=== PATIENT | female | born 1945 | race Caucasian/White ===

== ENCOUNTER 2022-10-05 11:59 | Inpatient (IN) | payer OTHER, MEDICARE, SELFPAY ==
[2022-09-27 13:34] VITALS: BMI 22.1
[2022-10-05] VITALS (17 sets, daily range): BP systolic 111–176; BP diastolic 51–96; PULSE 78–104; RESP 14–22; TEMP 35.9–36.7; O2SAT 95–100; BMI 22.1; BMI 23.7
--- NOTE | 2022-10-05 | DI.RAD.S_ITS ---
PROCEDURE: XR LUMBAR SPINE 2-3V INDICATIONS: L4-5 TLIF TECHNIQUE: 2 intraoperative fluoroscopic views of the lumbar spine were acquired. COMPARISON: None. FINDINGS: Intraoperative fluoroscopic images of lower lumbar spine shows posterior fusion at L4 and L5 levels with intervertebral spacer placement. IMPRESSION: Fluoro guidance was provided intraoperatively for posterior fusion of L4 and L5 vertebral bodies. Dictated by: Eric Boyer M.D. on 10/05/2022 at 16:58 Approved by: Eric Boyer M.D. on 10/05/2022 at 16:58
[2022-10-05] MEDS: LACTATED RINGERS 1,000 ML 42 ML IV ×2 (12:41→15:34)
[2022-10-05 13:10] LABS: COVID19 -Nasal RAPID Negative (Negative)
--- NOTE | 2022-10-05 13:26 | PM.PREOP ---
Pre-operative Note COVID-19 COVID-19 status: Negative Result date/Date tested (Pos, Neg/Pending): 10/04/22 Criteria for continued procedure: Expected advancement of disease process, Possibility delay results in more complex future surgery or treatment, Increased loss of function, Continuing or worsening of significant or severe pain, Deterioration of the patient's condition or overall health and Delay expected to result in less-positive ultimate med/surg outcome Interval Note History & Physical reviewed/Exam performed by Physician: Yes Changes to H&P: No
[2022-10-05] MEDS: CEFAZOLIN 2 GM/100 ML PREMIX 100 ML IV ×2 (14:26→23:26)
--- NOTE | 2022-10-05 14:46 | SUR.OPER ---
Prone on spine table, head in foam head support, padded chest and pelvic supports, gel pad at knees, lower legs supported by pillows; nipples, genitalia and toes free of pressure, arms secured on foam padded arm boards at <90 degrees abduction. Tape over blanket at thigh secured to table. Gel pad between heels
[2022-10-05] MEDS: BUPIVACAINE 0.25% (PF) 30 ML, EPINEPHrine 0.3 MG INJ (14:56)
[2022-10-05] MEDS: BUPIVACAINE LIPOSOME 266 MG/20 ML VIAL INJ (14:57)
--- NOTE | 2022-10-05 17:05 | PM.OP.1 ---
Operative Date/Time/Diagnoses Date of procedure: 10/05/22 Time of procedure: 14:00 Pre-op diagnosis: 1. L4-5 spinal stenosis 2. L4-5 spondylosis with radiculopathy Post-op diagnosis: same Procedure & Clinicians Procedure: 1. L4-5 Postero-lateral and posterior interbody fusion 2. L4-5 interbody cage placement. 3. L4-5 decompressive laminectomy with bilateral facetecomies 4. L4-5 Posterior non-segmental instrumentation 5. [place] of bone marrow from iliac crest 6. Utilization of microsurgical technique and operating microscope Same procedure as scheduled: Yes Indications: Patient has been having chronic back pain and worsening lumbar radiculopathy. Patient failed multiple conservative management with worsening pain weakness and numbness in her lower extremity. Patient has been having difficulty performing activity of daily living. After discussing risks benefits of treatment options, patient elected proceed with surgery. Surgeon: Ashu Lowe Explosive Technician: Merrill Niño Click Yes if Unassisted: No Anesthesia Type: General Operative Notes Closure Type: primary Specimen(s): none sent Prosthetic devices, grafts, tissues, transplants, or devices: Globus revolve screws, RIse cage Estimated Blood Loss (mL): 50 Blood products transfused: none Procedure in detail: Patient was seen in the preoperative area. Risks and benefits of the surgery was discussed with the patient. Informed consent was obtained from the patient and placed in the chart. Surgical site was marked. Patient was taken to the operative room. General anesthesia was administered. Prophylactic antibiotic was given to the patient less than 30 min before the incision was made. Patient was placed into a prone position on the Sarbjit table. Patient's back was then prepped and draped in the sterile fashion. Time-out was performed at this time. Using AP and lateral C-arm imaging the interval between L4-5 was identified and marked on patient's back. A 2 inch incision 2 in from midline was made on the right side first. The fascia was incised in line with skin incision. Globus MARS retractors was placed inside the incision and docked onto the L4 lamina. Using microsurgical technique and operating microscope, a L4 laminectomy and L4-5 facetectomy was performed using a Kerrison rongeur. The disc space at L4-5 was identified. And a total diskectomy was performed at L4-5 level. The endplates were decorticated using a rasp and shaver. The total diskectomy and decortication was performed at L4-5 level in order to to accomplish a L4-5 fusion. The local bone from the laminectomy and facetectomy was saved for local bone grafting. After the total diskectomy and decortication was completed, Trifecta bone graft material was combined with local bone that was harvested earlier. At this time, a separate skin is incision was made over the iliac crest. A Jamshidi needle was inserted into the iliac crest through a separate skin incision. 5 cc of bone marrow aspiration was obtained through the separate skin incision using a Jamshidi needle from the iliac crest. The bone marrow aspiration was combined with local bone and the Trifecta bone grafting material. The bone grafting material was placed into the L4-5 interbody space along with a expandable cage. The cage was expanded to its maximum height using the torque limiting screwdriver. During the process of the laminectomy and facetectomy, there was found to be significant adhesion between the ligamentum flavum and the dura at the L4-5 interval. There was a pinhole size dural defect identified after the ligamentum flavum resection was performed at the level of the laminectomy. Tisseel and DuraGen was used to patch the dural defect. And no CSF leakage was identified after the patch was completed. At this time a mirror image incision was made on the left side. The fascia was incised in line with the skin incision. Globus MARS retractor was inserted and docked onto the L4-5 posterolateral gutter. Using the power drill, posterior-lateral decortication was performed at L4-5 level until bleeding cortical bone was identified. The remaining bone grafting material was placed into the L4-5 posterior lateral gutter he order to accomplish posterolateral fusion at the L4-5 level. Using the double C-arm technique, pedicle screws were placed into the L4-5 pedicles bilaterally. This was done by placing the Jamshidi needle into the pedicles, then placing the guidewires over the Jamshidi needle, and finally placing the cannulated screws over the guidewires bilaterally. After the pedicle screws were placed, 2 titanium rods was locked into the heads of the pedicle screws using locking caps and torque limiting screwdriver. After all the hardware was placed, and confirmed with AP and lateral C-arm imaging, the wound was then irrigated with sterile normal saline and packed with Ray-Britney gauze for 3 min to accomplish hemostasis. After the gauze was removed the deep fascia was closed with #1 Vicryl suture. The subcutaneous layer was closed with 2-0 Vicryl. The skin was closed with skin tina. Patient tolerated the procedure well. There were no complications. For precaution, we will keep the patient's head of bed flat overnight. We will start racing head of bed up as tolerated in the morning and patient can participate in physical therapy in the morning if no headaches after the head of bed was elevated. Complications: none Post-operative Condition: stable Disposition: PACU Plan for aftercare: Admit to inpatient hospital
[2022-10-05] MEDS: fentaNYL 100 MCG/2 ML INJ IV ×2 (17:22→17:27)
[2022-10-05] MEDS: ONDANSETRON 4 MG/2 ML INJ IV (17:32)
[2022-10-05] MEDS: OXYCODONE IR 5 MG TABLET PO ×2 (17:32→18:07)
[2022-10-05] MEDS: hydrOXYzine 50 MG/ML INJ 25 MG IM (17:56)
--- NOTE | 2022-10-05 18:33 | PC.NURSE ---
Postop Note Pt to room 222 at this time, alert and oriented but asking repetitive questions repeatedly. Reports pain 100/10 to lower back. CMS intact to BLEs. Dressing to lower back C/D/I. Pt to lie flat except for brief periods of eating/drinking due to dural tear. Oriented to room and to bed/tv/call light controls. Call light within reach. Bed alarm is on.
[2022-10-05] MEDS: SODIUM CHLORIDE 0.9% 1,000 ML 100 ML IV (18:46)
[2022-10-05] MEDS: ACETAMINOPHEN 325 MG TABLET 650 MG PO (18:46)
[2022-10-05] MEDS: HYDROMORPHONE 0.5 MG INJ IV ×3 (18:47→23:27)
[2022-10-05] MEDS: OXYCODONE IR 5 MG TABLET 10 MG PO ×2 (20:25→23:56)
[2022-10-05] MEDS: AMITRIPTYLINE 25 MG TABLET 50 MG PO (20:26)
[2022-10-05] MEDS: SENNOSIDES 8.6 MG TABLET 17.2 MG PO (20:28)
[2022-10-05] MEDS: DOCUSATE 100 MG CAPSULE PO (20:28)
[2022-10-05] MEDS: BIMATOPROST 0.01% 1 EACH EYE-BOTH (21:07)
[2022-10-05] MEDS: BRIMONIDINE 0.2% OPHTH 5 ML 1 DROPS EYE-BOTH (21:08)
[2022-10-06] VITALS (7 sets, daily range): BP systolic 110–135; BP diastolic 40–71; PULSE 67–109; RESP 16–20; TEMP 36.3–37.1; O2SAT 95–98
[2022-10-06] MEDS: HYDROMORPHONE 0.5 MG INJ IV ×2 (05:22→08:39)
[2022-10-06] MEDS: hydrOXYzine pamoate 25 MG CAPSULE PO (05:23)
[2022-10-06] MEDS: ACETAMINOPHEN 325 MG TABLET 650 MG PO ×2 (05:23→20:26)
[2022-10-06] MEDS: SODIUM CHLORIDE 0.9% 1,000 ML 100 ML IV (05:24)
[2022-10-06] MEDS: OXYCODONE IR 5 MG TABLET 10 MG PO ×4 (06:39→17:39)
[2022-10-06] MEDS: CEFAZOLIN 2 GM/100 ML PREMIX 100 ML IV (06:40)
--- NOTE | 2022-10-06 07:47 | PM.PNPO.1 ---
Subjective Subjective Date Patient Seen: 10/06/22 Time Patient Seen: 07:47 Interval history: Patient's pain is moderate. Denies fever or chills. No nausea or vomiting. She does not have any headache this morning. Exam Vital Signs (past 8 hours): - 10/06/22 00:00 10/06/22 04:00 Temperature 97.4 F L 97.9 F Pulse Rate 109 H 105 H Respiratory Rate 17 18 Blood Pressure 135/65 121/48 L Pulse Oximetry 97 98 Oxygen Flow Rate 2 2 Oxygen Delivery Method Nasal Cannula Oxygen Flow Rate 2 Narrative Exam Narrative: 77-year-old female resting comfortably in bed in no apparent distress. Motor functions intact bilateral lower extremities. Sensation grossly intact to light touch bilateral lower extremities. Const General: cooperative and comfortable Nutritional Appearance: average body habitus Resp Effort & Inspection: normal respiratory effort and able to speak in complete sentences Objective Labs Labs: Laboratory Results - last 24 hr 10/05/22 12:32 SARS-CoV-2 (PCR) Negative PFSH Medical History Anxiety Arthritis Celiac disease Depression Glaucoma Hearing impaired PTSD (post-traumatic stress disorder) Spinal stenosis Thyroid disease Surgical History History of ankle surgery History of cataract surgery History of hysterectomy History of tonsillectomy and adenoidectomy Hx of breast biopsy Hx of cholecystectomy Hx of colonoscopy (2019) Hx of LASIK Hx of oral surgery Hx of tonsillectomy S/P epidural steroid injection Social History household members: spouse and children Smoking Status: Never smoker alcohol intake: former Assessment & Plan Post-op Postoperative Procedures: Procedures Operation Date: 10/05/22 13:45 Actual Procedure Side Surgeon p L4-5 TLIF Ashu Lowe MD Postoperative day: 1 Postoperative status: doing well Postoperative status narrative: Stable status post lumbar fusion Postoperative plan narrative: Multimodal pain management Elevate head of bed this morning to 30?, weight 1 hour if asymptomatic may elevate head of bed to 60? and wait another hour. If patient continues to be asymptomatic may continue elevate head of bed and participate in physical therapy this morning. Limit bending, twisting, lifting Disposition to be determined Quality VTE Deep Vein Thrombosis/Pulmonary Embolism Present on Admission: No
[2022-10-06] MEDS: BRIMONIDINE 0.2% OPHTH 5 ML 1 DROPS EYE-BOTH ×2 (08:45→20:30)
[2022-10-06] MEDS: DOCUSATE 100 MG CAPSULE PO ×2 (08:47→20:26)
--- NOTE | 2022-10-06 09:56 | PC.NURSE ---
Addendum entered by Delilah Bustos R.N. 10/06/22 16:47: Patient up OOB to BS. Voiding without difficulty. Original Note: Day note: Patient awake, alert, and cooperative. HOB increased to 30 degree x 1 hour 0800 - 0900, no C/O headache or nausea. Increased HOB to 60 degree x 1 hr 0900 - 1000 for breakfast, no headache or nausea, tolerated well. Understands importance of mobility precautions, including log rolling, however needs frequent reminding. Purewick in place. C/O surgical pain to lower back, and numbness to bilateral anterior upper thigh. PT to see patient this afternoon. Fall risk precautions maintained, call light within reach, uses appropriately.
[2022-10-06] MEDS: VENLAFAXINE 150 MG 1 EACH PO (10:21)
--- NOTE | 2022-10-06 11:31 | OT.IPNOTE ---
Pt on bed rest and having to lie flat overnight and then this morning at 30degrees, 60 degrees and then upright. Pending symptoms, to see pt in the PM. Able to get pt's prior level of care. NO charge.
--- NOTE | 2022-10-06 11:40 | PT.IIE ---
Current Diagnoses Other spondylosis with radiculopathy, lumbar region (10/05/22) Spinal stenosis, lumbosacral region (10/05/22) Surgery Performed Operation Date: 10/05/22 13:45 Actual Procedures p L4-5 TLIF - Ashu Lowe MD Surgical History (Last Reviewed 10/06/22 @ 07:48 by Merrill Niño PA-C) History of ankle surgery History of cataract surgery History of hysterectomy History of tonsillectomy and adenoidectomy Hx of breast biopsy Hx of cholecystectomy Hx of colonoscopy (2019) Hx of LASIK Hx of oral surgery Hx of tonsillectomy S/P epidural steroid injection Medical History (Last Reviewed 10/06/22 @ 07:48 by Merrill Niño PA-C) Anxiety Arthritis Celiac disease Depression Glaucoma Hearing impaired PTSD (post-traumatic stress disorder) Spinal stenosis Thyroid disease Physical Therapy Inpatient Evaluation/Re-Eval M1 PT/OT-IP Prior Functional Status Start: 10/06/22 13:22 Freq: NEEDED Status: Active Protocol: Document 10/06/22 11:40 AB (Rec: 10/06/22 14:19 AB [id number]) Medical Review Prior Functional Status Medical History Reviewed Yes Communication able to make needs known Mobility and Gait pt stated that she is independent with all mobilities and ambulation without AD Social History Household Members spouse,children Living Arrangements Apartment/Condo Number of Floors (Floors) One Floor Number of Stairs To Enter/Railing? pt lives on a 2nd level apartment with 13 steps to enter with B rails Home Environment Standard Height Toilet,Tub/ Shower Home Equipment Four Wheel Walker,Hand Held Shower M2 PT-IP Current Condition Start: 10/06/22 13:22 Freq: NEEDED Status: Active Protocol: Document 10/06/22 11:40 AB (Rec: 10/06/22 14:19 AB [email or web address]) Physical Therapy Current Condition Current Condition Evaluation Date 10/06/22 Treatment Diagnosis s/p L4-5 TLIF; difficulty in walking Onset Date 10/05/22 M3 PT-IP Subjective Start: 10/06/22 13:22 Freq: NEEDED Status: Active Protocol: Document 10/06/22 11:40 AB (Rec: 10/06/22 14:19 AB [email or web address]) Subjective Physical Therapy Visit Type Type Initial Evaluation Visit Start Time 11:40 Visit Stop Time 12:40 Total Visit Minutes 60 Number of DOUBLE SPINDLE SHAPER OPERATOR Visits 0 Therapy Pain Assessment Pain When Pain Assessed At Rest Pain Present Pain Present Pain Reported Location lower back Intensity 5 Scale Used Numeric (0 - 10) Pain Management Techniques Distraction,Modification of Treatment,Re-positioning, Timing of Activity with Medications M4 PT-IP Mobility and Gait Start: 10/06/22 13:22 Freq: NEEDED Status: Active Protocol: Document 10/06/22 11:40 AB (Rec: 10/06/22 14:19 AB [id number]) PT-Bed Mobility Assessment Rolling Type of Rolling Log Rolling Level of Assist Maximal Assistance,1 Person Assistance Supine to Sit Supine to Sit Minimal Assistance,Moderate Assistance PT-Transfer Assessment Sit to and From Stand Sit to and from Stand Moderate Assistance,1 Person Assistance,Use of Upper Extremities Equipment Transfer Assistive Device Front Wheeled Walker Orthotic/Prosthetic Devices or Brace: No Transfers Transfer Destination Bedside Commode Transfer Technique Stand Step Pivot Transfer Ability Level of Assist Moderate Assistance,1 Person Assistance,Use of Upper Extremities Comments Mobility Comments pt with dural tear during sx. Checked in with nurse and stated that pt is tolerating upright position of HOB and is cleared to get up with PT by 12nn. checked with pt and obtained PLOF and home set up. educated pt on back precautions and log roll bed mobility. pt agreed to get up . BP in supine: 108/45. completed supine to sit: needed max A for rolling to the side and min to mod for supine to sit with max A and max cues. pt able to sit on EOB CGA. BP in sittin/39 . pt sat on EOB for a few more minutes and no complaints . BP checked again: 104/45. pt stated that she needs to use the toilet. completed sit to stand mod A and cues and step transfer to bedside commode using FWW mod A. pt able to take steps using FWW during transfers with decrease LE elevation. BP checked after transfers: 99/38. Rechecked: 109/48. Pt without complaints. completed sit to stand from the bedside commode mod A and was able to maintain standing using fWW for support min A while assisted with brief management . pt completed step transfer to chair using FWW mod A and cues. positioned pt on the chair. call light and table placed within reach. pt set up with lunch tray. Left pt with NAC. BP at end of PT session: 112/71 Gait Assessment Comments Gait Comments able to take steps during transfers using fWW PT-Balance Assessment Sitting Balance and Reactions Static Sitting Balance Ability Good Dynamic Sitting Balance Ability Fair Standing Balance and Reactions Static Standing Balance Ability Fair Dynamic Standing Balance Ability Poor Device Used FWW M5 PT-IP Objective Assessments Start: 10/06/22 13:22 Freq: NEEDED Status: Active Protocol: Document 10/06/22 11:40 AB (Rec: 10/06/22 14:19 AB [email or web address]) Orientation Orientation/Cognition Level of Alertness Alert Orientation Name Language Function Ability Hard of Hearing Safety Awareness Decreased Safety Awareness Memory Description Short Term Impaired Gross Range of Motion Lower Extremity ROM Assessment Within Functional Limits Strength Lower Extremity Strength Assessment Within Functional Limits Coordination Assessment Gross Coordination Gross Coordination WNL Sensation Assessment Sensation Gross Sensation WNL Muscle Tone Muscle Tone WNL Yes M6 PT-IP Treatment Start: 10/06/22 13:22 Freq: NEEDED Status: Active Protocol: Document 10/06/22 11:40 AB (Rec: 10/06/22 14:19 AB [email or web address]) Physical Therapy Treatment Education Education Provided Precautions,Weight Bearing Status,Post-Op Packet,Safety M7 PT-IP Assessment and Plan Start: 10/06/22 13:22 Freq: NEEDED Status: Active Protocol: Document 10/06/22 11:40 AB (Rec: 10/06/22 14:19 AB [email or web address]) PT Summary Assessment and Plan Potential Rehabilitation Potential Fair Status of Condition at Evaluation Evolving Summary Impairments Pain,ROM,Strength,Balance, Coordination,Sensation,Tone, Cognition,Bed Mobility, Transfers,Gait,Activity Tolerance Assessment Summary Pt requiring mod to max A with mobility using FWW. Pt stated that her spouse and daughter works and is not sure if they will be able to assist her at home. caregiver training scheduled this afternoon at 2pm. d/c plan depending on progress but at this time will need 24/7 assist and HHPT vs SNF. will continue to assess progress. Goals Bed Mobility Goal Standby Assistance Transfer Goal Standby Assistance,Front Wheeled Walker,Four Wheeled Walker Gait Goal Standby Assistance,Front Wheel Walker,Four Wheel Walker Gait Distance 200 Other Goals up/down 13 steps B rails SBA Days to Meet Goals 10 Frequency of Treatment Frequency Of Treatment Twice a Day Treatment Plan Physical Therapy Treatment Plan Bed Mobility Training,Transfer Training,Gait Training, Therapeutic Exercise,Balance Retraining,Post Op Education, Discharge Planning,Hot or Cold Pack,Neuromuscular Re-ed, Coordination Retraining,Manual Therapy Precautions Lumbar Precautions Log Roll,No Twisting,Limit Bending,Lifting Restriction of 10 lbs,Gait Belt above Incisional Area Recommendations To Nursing Amount of Assist Needed 1 Person Assist Discharge Recommendations PT Discharge Recommendations Home with 24/ Assist Available,Home Health,SNF Rehab,Home vs SNF Equipment Needed for Home Before FWW if not safe with 4WW Discharge Transportation Needs at Discharge Private Vehicle,Wheelchair/ Cabulance
--- NOTE | 2022-10-06 13:45 | OT.IP.EVAL ---
Current Diagnoses Other spondylosis with radiculopathy, lumbar region (10/05/22) Spinal stenosis, lumbosacral region (10/05/22) Surgery Performed Operation Date: 10/05/22 13:45 Actual Procedures p L4-5 TLIF - Ashu Lowe MD Past Medical History (Last Reviewed 10/06/22 @ 07:48 by Merrill Niño PA-C) Anxiety Arthritis Celiac disease Depression Glaucoma Hearing impaired PTSD (post-traumatic stress disorder) Spinal stenosis Thyroid disease Surgical History (Last Reviewed 10/06/22 @ 07:48 by Merrill Niño PA-C) History of ankle surgery History of cataract surgery History of hysterectomy History of tonsillectomy and adenoidectomy Hx of breast biopsy Hx of cholecystectomy Hx of colonoscopy (2019) Hx of LASIK Hx of oral surgery Hx of tonsillectomy S/P epidural steroid injection Occupational Therapy Inpatient Evaluation/Re-Eval M1 PT/OT-IP Prior Functional Status Start: 10/06/22 13:22 Freq: NEEDED Status: Active Protocol: Document 10/06/22 15:19 [facility] (Rec: 10/06/22 15:44 [facility] [id number]) Medical Review Prior Functional Status Medical History Reviewed Yes Communication able to make needs known Mobility and Gait pt stated that she is independent with all mobilities and ambulation without AD Activities of Daily Living and IADL's Pt states was completely independent with all ADl and IADL needs but just had pain. Social History Household Members spouse Living Arrangements Apartment/Condo Number of Stairs To Enter/Railing? Pt states has 13 steps with bilateral rails but usually only hold the right rail to go up the steps. Home Environment Standard Height Toilet,Tub/ Shower Home Equipment Four Wheel Walker,Hand Held Shower Additional Social History Comment Pt's states to get equipment for a friend -FWW, shower chair M2 OT-IP Current Condition Start: 10/06/22 15:13 Freq: Status: Active Protocol: Document 10/06/22 15:19 [facility] (Rec: 10/06/22 15:44 [facility] [id number]) Occupational Therapy Current Condition Current Condition Evaluation Date 10/06/22 Treatment Diagnosis S/p L4-5 TLIF Diagnosis Onset Date 10/05/22 Post Operative Precautions Lumbar Precautions Log Roll,No Twisting,Limit Bending,Lifting Restriction of 10 lbs,Gait Belt above Incisional Area M3 OT- IP Subjective and Pain Start: 10/06/22 15:13 Freq: Status: Active Protocol: Document 10/06/22 15:19 [facility] (Rec: 10/06/22 15:44 [facility] [id number]) OT- Subjective Occupational Therapy Visit Type Type Initial Evaluation Visit Start Time 13:45 Visit Stop Time 14:38 Total Visit Minutes 53 Occupational Therapy Visit Comments Patient Comments Pt having low BP in the morning and went back to see her in the PM, pt's present for the end of the session. Patient/Caregiver Goals To go home. OT Pain Assessment Pain When Pain Assessed During Mobility Pain Present Pain Present Pain Reported Location lower back Intensity 7 Scale Used Numeric (0 - 10) M4 OT- IP ADL's Start: 10/06/22 15:13 Freq: Status: Active Protocol: Document 10/06/22 15:19 [facility] (Rec: 10/06/22 15:44 [facility] [id number]) OT [id number] General Evaluation Self-Feeding Ability Independent OT ADL-Grooming General Evaluation Areas Needing Assistance Retrieving/Set-up of Grooming Items Comments OT Grooming Comments Pt able to wash her hands after a set up of a wash cloth . OT ADL-Oral Care Comments Oral Care Comments Not performed. Educated pt best to just spit into a cup or hinge at her hips. OT ADL-Dressing General Eval Lower Body Dressing Ability Maximum Assistance Comments OT Dressing Comments Able to show pt hospice music therapist and sock aid to practice while seated in the recliner. OT ADL-Toileting General Evaluation Toileting Ability Contact Guard Assistance Comments OT Toileting Comments CGA for balance while pt able to pull up her brief. Pt able to reach appropriately to wipe . Suggested pt to have wipes and pads/brief so not having to garcia to the bathroom. OT ADL-Bathing Comments OT Bathing Comments Not performed. To attempt tomorrow if pt willing. M5 OT- IP IADL's Start: 10/06/22 15:13 Freq: Status: Active Protocol: Document 10/06/22 15:19 [facility] (Rec: 10/06/22 15:44 [facility] [id number]) OT-Instrumental Activities of Daily Living Home Safety Awareness Home Safety Comments Pt a bit groggy, impulsive and needing cue to slow down and follow her back precautions. Medication Management Medication Management Comments At this time as pt is groggy for her to assist with her medications. Money Management Money Management Comments Pt's does the bills. M6 OT- IP Functional Cognition Start: 10/06/22 15:13 Freq: Status: Active Protocol: Document 10/06/22 15:19 [facility] (Rec: 10/06/22 15:44 [facility] [id number]) Cognitive Factors Limiting Selfcare Function Cognitive Ability Level of Alertness Alert,Drowsy Patient Orientation Name,Place,Situation Attention Span Ability Capable of Focused Attention, Capable of Sustained Attention Ability to Follow Commands Able to Follow One Step Commands with Increased Time, Able to Follow One Step Commands with Repetition Safety Awareness Decreased Recall of Precautions,Decreased Ability to Apply Precautions, Underestimates Need for Assistance Cognitive Comments Cognitive Assessment Comments Pt is impulsive, decreased safety awareness, and needing vc for her back precautions for ADl and mobility needs. Pt is forgetful and easily distracted. OT- Vision and Hearing OT- Vision Assessment Visual Acuity WFL Visual Attentiveness WFL Occular Pursuits WFL M7 OT- IP Mobility and Balance Start: 10/06/22 15:13 Freq: Status: Active Protocol: Document 10/06/22 15:19 [facility] (Rec: 10/06/22 15:44 [facility] [id number]) OT-Transfer Assessment Sit to and From Stand Sit to and from Stand Contact Guard Assistance Transfers Transfer Ability Contact Guard Assistance Technique Transfer Destination Bed,Bedside Commode,Chair Transfer Technique Stand Step Pivot Devices Transfer Assistive Devices Gait Belt,Front Wheeled Walker Comments Mobility Comments Pt BP sitting 99/33 and after getting back to bed 106/46, nursing aware of low bp. Pt's present and OPERATIONS MGR able to go over gait belt management and bed mobility with her . OT- Balance Assessment Sitting Balance and Reactions Static Sitting Balance Ability Good Dynamic Sitting Balance Ability Fair Standing Balance and Reactions Static Standing Balance Ability Fair M8 OT- IP Objective Assessments Start: 10/06/22 15:13 Freq: Status: Active Protocol: Document 10/06/22 15:19 [facility] (Rec: 10/06/22 15:44 [facility] [id number]) OT-Muscle Tone Assessment Muscle Tone WNL Yes M9 OT- IP Assessment and Plan Start: 10/06/22 15:13 Freq: Status: Active Protocol: Document 10/06/22 15:19 [facility] (Rec: 10/06/22 15:44 [facility] [id number]) OT Summary Assessment and Plan Potential Rehabilitation Potential Good Analytic Complexity at Evaluation Low Summary OT Impairments Pain,Balance,Dressing, Toileting,Bathing,Toilet Transfers,Shower Transfers, Activity Tolerance Progress Towards Goals Progressing Toward Goals,Slow Progress due to Medical Issues Assessment Summary Pt low complexity and main barrier are low BP and feeling weak, however able to move well today for transfers and just needing CGA with FWW. Pt 's present for caregiver training and able to answer questions regarding ADL and OT equipment needs. Pt 's is aware that pt gets easily distracted and that she has decreased safety awareness . When medically stable, pt looking to go home with her . Goals Grooming Goal Independent Dressing Goal Independent Toileting Goal Independent Bathing Goal Independent Toilet Transfer Goal Independent Shower Transfer Goal Independent Patient/Caregiver Education Goal Demonstrate Post-Op Precautions,Caregiver Independent Assisting Patient Days to Meet Goals 5 Frequency of Treatment Frequency Of Treatment Once a Day Treatment Plan OT Treatment Plan ADL Training,Functional Mobility,Patient/Family Education,Discharge Planning Other Treatment Recommendations and Next shower , caregiver training Treatment Focus Discharge Recommendations OT Discharge Recommendations Home with 24 Assist Available Transportation Needs at Discharge Private Vehicle
--- NOTE | 2022-10-06 14:26 | PT.IPTN ---
Current Diagnoses Other spondylosis with radiculopathy, lumbar region (10/05/22) Spinal stenosis, lumbosacral region (10/05/22) Surgery Performed Operation Date: 10/05/22 13:45 Actual Procedures p L4-5 TLIF - Ashu Lowe MD Physical Therapy Treatment Note M2 PT-IP Current Condition Start: 10/06/22 13:22 Freq: NEEDED Status: Active Protocol: Document 10/06/22 11:40 [facility] (Rec: 10/06/22 14:19 [facility] [id number]) Physical Therapy Current Condition Current Condition Evaluation Date 10/06/22 Treatment Diagnosis s/p L4-5 TLIF; difficulty in walking Onset Date 10/05/22 M3 PT-IP Subjective Start: 10/06/22 13:22 Freq: NEEDED Status: Active Protocol: Document 10/06/22 14:02 [facility] (Rec: 10/06/22 16:17 [facility] [id number]) Subjective Physical Therapy Visit Type Type Treatment Note Visit Start Time 14:02 Visit Stop Time 14:26 Total Visit Minutes 24 Notes BP: 99/33 sitting in chair, 106/46 supine Pts present for caregiver training 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 1 Therapy Pain Assessment Pain When Pain Assessed After Treatment Pain Present Pain Present Pain Reported Location lower back Intensity 5 Scale Used Numeric (0 - 10) Description Aching,Throbbing Pain Management Techniques Distraction,Modification of Treatment,Re-positioning M4 PT-IP Mobility and Gait Start: 10/06/22 13:22 Freq: NEEDED Status: Active Protocol: Document 10/06/22 14:02 [facility] (Rec: 10/06/22 16:17 [facility] [id number]) PT-Bed Mobility Assessment Rolling Type of Rolling Log Rolling Level of Assist Contact Guard Assistance,1 Person Assistance Supine to Sit Supine to Sit Contact Guard Assistance Sit to Supine Sit to Supine Contact Guard Assistance, Minimal Assistance Scooting Scooting to Edge of Bed Contact Guard Assistance PT-Transfer Assessment Sit to and From Stand Sit to and from Stand Contact Guard Assistance,1 Person Assistance,Use of Upper Extremities Equipment Transfer Assistive Device Gait Belt,Front Wheeled Walker Orthotic/Prosthetic Devices or Brace: No Transfers Transfer Destination Bed Transfer Technique Stand Step Pivot Transfer Ability Level of Assist Contact Guard Assistance,1 Person Assistance,Use of Upper Extremities Comments Mobility Comments Pt in chair upon arrival w/ in room. Pt able to recall 2/3 spinal precautions (no lifting). BP sitting in chair 99/33, pt wanting to get back into bed, denied dizziness and lightheadedness. Pt slightly impulsive and requires safety cues. Demonstrated gait belt application and how to assist w/ FWW securing and sit<>Stand to pts who was able to perform. Pt CGA and cues for hand placement for sit<> stand w/ FWW and stand step pivot to bed. Demonstrated sit <>sidelying and logroll to pts , pt required Min A on first attempt for LE elevation into bed, but performed additional logroll, sidelying<>sit, sit<>Sidelying and logroll back into bed all CGA and cues. Pts BP 106/46 supine. Pt left in bed w/ in room and all needs in reach. Caregiver training scheduled for 9 AM 10/07. Gait Assessment Gait Gait Assistance Required: Contact Guard Assist,1 Person Assist Distance (Feet) 2 Assistive Devices Assistive Device Gait Belt,Front Wheeled Walker Comments Gait Comments able to take steps during transfers using fWW Stair Climbing Assessment Comments Stair Climbing Comments Did not assess, will need to complete prior to d/c if going home. PT-Balance Assessment Sitting Balance and Reactions Static Sitting Balance Ability Good Dynamic Sitting Balance Ability Fair Standing Balance and Reactions Static Standing Balance Ability Fair Dynamic Standing Balance Ability Fair Device Used FWW M5 PT-IP Objective Assessments Start: 10/06/22 13:22 Freq: NEEDED Status: Active Protocol: Document 10/06/22 11:40 [facility] (Rec: 10/06/22 14:19 [facility] [id number]) Orientation Orientation/Cognition Level of Alertness Alert Orientation Name Language Function Ability Hard of Hearing Safety Awareness Decreased Safety Awareness Memory Description Short Term Impaired Gross Range of Motion Lower Extremity ROM Assessment Within Functional Limits Strength Lower Extremity Strength Assessment Within Functional Limits Coordination Assessment Gross Coordination Gross Coordination WNL Sensation Assessment Sensation Gross Sensation WNL Muscle Tone Muscle Tone WNL Yes M6 PT-IP Treatment Start: 10/06/22 13:22 Freq: NEEDED Status: Active Protocol: Document 10/06/22 14:02 [facility] (Rec: 10/06/22 16:17 [facility] [id number]) Physical Therapy Treatment Education Education Provided Precautions,Weight Bearing Status,Post-Op Packet,Safety Other Treatments Other Treatment Performed Began caregiver training w/ pts - covered gait belt, sit<>Stand w/ FWW, and bed mobility/logroll. M7 PT-IP Assessment and Plan Start: 10/06/22 13:22 Freq: NEEDED Status: Active Protocol: Document 10/06/22 14:02 [facility] (Rec: 10/06/22 16:17 [facility] [id number]) PT Summary Assessment and Plan Potential Rehabilitation Potential Fair Summary Impairments Pain,ROM,Strength,Balance, Coordination,Sensation,Tone, Cognition,Bed Mobility, Transfers,Gait,Activity Tolerance Progress Towards Goals Slow Progress due to Pain,Slow Progress due to Medical Issues Assessment Summary Pt showed improvement w/ mobility this PM, requiring CGA for sit<>Stand and stand step pivot transfer using FWW, CGA to Min A for bed mobility . Pt continues to have low BP, is impulsive, and requires safety cues. Intiated caregiver training, but will need continuation prior to d/c to assess carryover, increased ambulation, and stair training. Will continues to assess progress. Caregiver training 10/07 9 AM. Goals Bed Mobility Goal Standby Assistance Transfer Goal Standby Assistance,Front Wheeled Walker,Four Wheeled Walker Gait Goal Standby Assistance,Front Wheel Walker,Four Wheel Walker Gait Distance 200 Other Goals up/down 13 steps B rails SBA Days to Meet Goals 10 Frequency of Treatment Frequency Of Treatment Twice a Day Treatment Plan Physical Therapy Treatment Plan Bed Mobility Training,Transfer Training,Gait Training, Therapeutic Exercise,Balance Retraining,Post Op Education, Discharge Planning,Hot or Cold Pack,Neuromuscular Re-ed, Coordination Retraining,Manual Therapy Other Recommendations and Next Treatment Stair training, ambulation w/ Focus 4WW Precautions Lumbar Precautions Log Roll,No Twisting,Limit Bending,Lifting Restriction of 10 lbs,Gait Belt above Incisional Area Recommendations To Nursing Amount of Assist Needed 1 Person Assist Discharge Recommendations PT Discharge Recommendations Home with 19/06 Assist Available,Home Health,SNF Rehab,Home vs SNF Equipment Needed for Home Before FWW if not safe with 4WW Discharge Transportation Needs at Discharge Private Vehicle,Wheelchair/ Cabulance
--- NOTE | 2022-10-06 15:08 | CM.DANOTE ---
Patient is a 77 yo female who was admitted on 10/05/22 for TLIF. Pt has REG PPO and MCR A Only for insurance and her PCP is Holly Daniels. EMR was reviewed. Per Ortho, pt tolerated procedure well for post lumbar fusion and to slowly elevate and then work later today with PT/OT. Per PT/OT, pt ambulated without much assist and completed bed mobility and spouse has been bedside but limited CG training today due to bp issues but CG training scheduled with spouse in the AM at 0900 as pt has 13 stairs to enter the home. Likely home with spouse assist and r/o HH. SW met bedside with pt and spouse and OT and explained role and they confirm they live in [place] and deny any hx of HH or SNF and spouse works maritime officer but has the next 3 days off work. Pt is independent with ADLs at baseline and drives and states that she typically works out and stays active regularly. Plan: SW to follow after CG training at 0900 in the morning for stairs to confirm safe plan of home with spouse assist and r/o HH vs outpt PT. SITA [place] Discharge Planning/Care Management CM Discharge Assessment Start: 10/06/22 15:06 Freq: Status: Active Protocol: Document 10/06/22 15:06 (Rec: 10/06/22 15:07 [id number]) Discharge Planning Assessment Assigned Sap Integration Architect SITA Rajan DPOA/Assigned Designee Name spouse Ady Contact Information [phone] Advance Directives? Yes Advance Directives on File No History Provided By Patient,Significant Other, Medical Record Has Patient been admitted in last 30 No days? Prior Living Arrangements Apartment/Condo Household Members spouse Type of transporation used prior to Drives own vehicle admit Independent with ADL's Yes Is patient alert and oriented? Yes Caregiver for Another No Community Services used prior to Physical Therapy admission: DME Already Rented / Owned FWW / Walker Patient/Family Preference OP PT Therapy Comment r/o HH needs Barriers to Discharge No Discharge Plan Home Community Services Physical Therapy Transportation Arrangement Spouse bedside and plans to provide transport at d/c Additional Comment r/o HH at d/c after further PT /OT and CG training in the AM Whiteboard Updated in Patient Room with Yes name and ext. # of Sap Integration Architect Review Status In Process Please Provide Date Initial DC 10/06/22 Assessment Was Performed Next Review Type Continued Stay Review Pre-Anesthesia Assessment Start: 09/27/22 13:34 Freq: Status: Complete Protocol: Document 09/27/22 13:34 [facility] (Rec: 09/27/22 15:03 [facility] [id number]) Pre-Anesthesia Assessment Preferred Name Haley Patient Information Reviewed Via Phone Assessment Assessment Completed With Patient Diagnostic Results BMP/CMP,CBC Comment Outside labs 08/17/22, ECG not here, COVID screen @ [facility] on admit Primary Care Provider Holly Daniels Seen Specialist in Last 12 Months Yes Specialist Seen Orthopedist Primary Language Amharic Chef Assistant Required No Height 154.94 cm Weight 53.07 kg Body Mass Index (BMI) 22.1 Hearing Ability Hearing Impaired,Use of Hearing Aid Visual Impairment No Limitations Visual Assist None Dentition Type Teeth, Natural Present Barriers to Learning None Hx Anesthesia Reactions No Hx Family Anesthesia Reaction No Hx Malignant Hyperthermia No Hx Blood Transfusions No Anesthesia Review Requested No alcohol intake former Smoking Status Never smoker Substance Use Type does not use Pain Present Pain Reported Musculoskeletal Symptoms Abnormal Gait,Back Pain, Limited Range of Motion,Muscle Weakness,Radiating Pain into Limb History of Falling (Recent or History of No ) Patient is completely paralyzed or No completely immobile Mental Status Oriented to own ability Comment Advised pt obtain a FWW for after surgery, she declines Is patient on oxygen? No Does patient have CAVANAUGH/SOB No Hx Sleep Apnea No Currently Taking a Beta Bishop No Hx Chest Pain No Hx SOB No Hx Syncope or Dizziness No Anti-Coagulant Therapy No Has a Training And Documentation Specialist No Cardiac Testing No Hx Pacemaker/ICD No Pacemaker Rep Required? No Cardiac Clearance Received No Diet Type At Home Gluten Free Dysphagia No Gastrointestinal Symptoms None Chronic UTI No Bladder Pattern Frequency Urinary Catheter Present No Hx Urinary Self Catheterization No Diabetes No Patient No Lactating No Hx Drug Resistant Organism No Presence of External or Internal Medical Yes: Right ankle hardware, eye Devices IOLs/stents Have you had any close contact with No someone diagnosed with COVID-19? Received a COVID vaccine? Yes Received all doses? Yes Marital Status Lives With spouse,children Current Living Arrangements House Support System Child/Children,Spouse Does the Patient Have Assistance After Yes Surgery Patient Discharge Plan Description Return Home Comment Pt advised 1 day length of stay per surgeon Feels Safe in Current Environment Yes Been Physically Hurt or Threatened By a No Person in Current Environment Do you have thoughts of harming yourself None or others? Are you currently considering suicide? No Do you have a plan to hurt yourself or No Plan others? Do You Have Any Spiritual Beliefs That No May Affect Your HC Choices? Do You Have Any Cultural Practices That No May Affect Your HC Choices? Comment [employer] Evangel[employer] Who Can We Speak to About Patient's Care Family, friends Identifying Code for Release of Patient Declines to issue Information Health Care Proxy/Next of Kin Ady () Health Care Proxy Emergency Contact Name Ady () Emergency Contact Advance Directives? Yes Advance Directives on File No Requested Patient Bring Advanced Yes Directives DOS Power of Electrical Tryout Person Yes Power of Electrical Tryout Person Name Ady () Power of Electrical Tryout Person PAC Instructions Durable medical equipment, Medications to take/avoid, Nasal antibiotic,No ETOH/ petroleum product on skin DOS, NPO,Post-op transportation,Pre -surgical wash,Sensory aids, Sturdy shoes/comfortable clothes,Do not bring valuables and remove jewelry
[2022-10-06] MEDS: SENNOSIDES 8.6 MG TABLET 17.2 MG PO (20:26)
[2022-10-06] MEDS: AMITRIPTYLINE 25 MG TABLET 50 MG PO (20:26)
[2022-10-06] MEDS: BIMATOPROST 0.01% 1 EACH EYE-BOTH (20:33)
[2022-10-07] MEDS: OXYCODONE IR 5 MG TABLET 10 MG PO ×3 (01:18→15:17)
[2022-10-07 01:26] VITALS: BP 151/61; PULSE 113; RESP 17; TEMP 37.4; O2SAT 96
[2022-10-07 05:12] VITALS: BP 128/72; PULSE 81; RESP 16; TEMP 36.8; O2SAT 97
[2022-10-07 08:31] VITALS: BP 113/49; PULSE 99; RESP 18; TEMP 36.5; O2SAT 94
[2022-10-07] MEDS: DOCUSATE 100 MG CAPSULE PO (08:33)
[2022-10-07] MEDS: TIMOLOL 0.5% OPHTH 1 DROPS EYE-BOTH (09:00)
[2022-10-07] MEDS: BRIMONIDINE 0.2% OPHTH 5 ML 1 DROPS EYE-BOTH (09:00)
--- NOTE | 2022-10-07 09:05 | PT.IPTN ---
Current Diagnoses Disorder of thyroid, unspecified (10/05/22) Dural tear (10/05/22) Other spondylosis with radiculopathy, lumbar region (10/05/22) Spinal stenosis, lumbosacral region (10/05/22) Arthrodesis status (10/05/22) Surgery Performed Operation Date: 10/05/22 13:45 Actual Procedures p L4-5 TLIF - Ashu Lowe MD Physical Therapy Treatment Note M2 PT-IP Current Condition Start: 10/06/22 13:22 Freq: NEEDED Status: Active Protocol: Document 10/06/22 11:40 AB (Rec: 10/06/22 14:19 AB [id number]) Physical Therapy Current Condition Current Condition Evaluation Date 10/06/22 Treatment Diagnosis s/p L4-5 TLIF; difficulty in walking Onset Date 10/05/22 M3 PT-IP Subjective Start: 10/06/22 13:22 Freq: NEEDED Status: Active Protocol: Document 10/07/22 09:05 AB (Rec: 10/07/22 12:34 AB [id number]) Subjective Physical Therapy Visit Type Type Treatment Note Visit Start Time 09:05 Visit Stop Time 09:57 Total Visit Minutes 52 Number of DEVOPS SOLUTIONS ARCHITECT Visits 0 Physical Therapy Visit Comments Patient Comments agreeable to do PT Therapy Pain Assessment Pain When Pain Assessed At Rest Pain Present Pain Present Pain Reported Location lower back Scale Used pain scale not stated Pain Management Techniques Apply Cold,Distraction, Modification of Treatment,Re- positioning,Timing of Activity with Medications M4 PT-IP Mobility and Gait Start: 10/06/22 13:22 Freq: NEEDED Status: Active Protocol: Document 10/07/22 09:05 AB (Rec: 10/07/22 12:34 AB [id number]) PT-Bed Mobility Assessment Supine to Sit Supine to Sit Standby Assistance,Contact Guard Assistance Sit to Supine Sit to Supine Standby Assistance,Contact Guard Assistance PT-Transfer Assessment Sit to and From Stand Sit to and from Stand Contact Guard Assistance,1 Person Assistance,Use of Upper Extremities Equipment Transfer Assistive Device Gait Belt,Front Wheeled Walker Orthotic/Prosthetic Devices or Brace: No Transfers Transfer Destination Toilet Transfer Technique toilet Transfer Ability Level of Assist Contact Guard Assistance, Minimal Assistance,1 Person Assistance,Use of Upper Extremities Comments Mobility Comments spouse in room for caregiver training. attempted log roll supine<>sit but needs cues. educated pt and spouse again on log roll bed mobility. pt completed x 6 and spouse was able to cue pt. spouse was able to put safety belt on pt and assisted pt with sit to stand and ambulation to the toilet using FWW. spouse confirmed that he got a FWW for pt to use. pt completed toileting need and spouse was able to assist pt. pt ambulated from the toilet towards the sink using FWW CGA to min A with spouse assisting. able to maintain standing balance using FWW for support CGA while completing handwashing. pt ambulated out to the hallway using FWW ~ 60 ft with spouse assisting and completed safely. stair climbing training conducted. educated pt and spouse on stair climbing techniques. pt completed up/ down 3 steps x 2 sets with spouse assisting and cueing CGA to min A. pt used B rails to assist. pt assisted back to her room. ambulated from w/c to chair ~ 25 ft using FWW CGA to min A and cues. positioned pt on the chair. call light and table placed within reach. informed nurse regarding pt's mobility and dc plan. Gait Assessment Gait Gait Assistance Required: Contact Guard Assist,Minimum Assistance Distance (Feet) 60 Able to Maintain Weight Bearing Status Yes During Gait Assistive Devices Assistive Device Gait Belt,Front Wheeled Walker Orthotic/Prosthetic Devices or Brace: No Gait Deviations General Gait Pattern Antalgic,Decreased Stride Length,Decreased Feet Clearance,Step-to Gait Factors Limiting Gait Function Factors Limiting Gait Function Decreased Activity Tolerance, Decreased Strength,Difficulty Following Directions,Limited Range of Motion,Pain,Poor Balance,Poor Safety Awareness Stair Climbing Assessment Evaluation Level of Assist On Stairs Contact Guard Assistance, Minimal Assistance,1 Person Assistance Devices Stair Climbing Assistive Devices Left Railing,Right Railing Technique/Endurance Stair Climbing Direction Ascend and Descend Stair Climbing Technique Step to Step Number of Steps Climbed 3 Stair Climbing Set # Repetitions (reps) 2 M5 PT-IP Objective Assessments Start: 10/06/22 13:22 Freq: NEEDED Status: Active Protocol: Document 10/06/22 11:40 AB (Rec: 10/06/22 14:19 AB [id number]) Orientation Orientation/Cognition Level of Alertness Alert Orientation Name Language Function Ability Hard of Hearing Safety Awareness Decreased Safety Awareness Memory Description Short Term Impaired Gross Range of Motion Lower Extremity ROM Assessment Within Functional Limits Strength Lower Extremity Strength Assessment Within Functional Limits Coordination Assessment Gross Coordination Gross Coordination WNL Sensation Assessment Sensation Gross Sensation WNL Muscle Tone Muscle Tone WNL Yes M6 PT-IP Treatment Start: 10/06/22 13:22 Freq: NEEDED Status: Active Protocol: Document 10/07/22 09:05 AB (Rec: 10/07/22 12:34 AB [id number]) Physical Therapy Treatment Education Education Provided Precautions,Safety M7 PT-IP Assessment and Plan Start: 10/06/22 13:22 Freq: NEEDED Status: Active Protocol: Document 10/07/22 09:05 AB (Rec: 10/07/22 12:34 AB [id number]) PT Summary Assessment and Plan Potential Rehabilitation Potential Fair Summary Impairments Pain,ROM,Strength,Balance, Coordination,Sensation,Tone, Cognition,Bed Mobility, Transfers,Gait,Activity Tolerance Progress Towards Goals Slow Progress due to Pain,Slow Progress due to Activity Tolerance Assessment Summary caregiver training completed and spouse was able to assist pt safely. pt may go home when medically stable. Goals Bed Mobility Goal Standby Assistance Transfer Goal Standby Assistance,Front Wheeled Walker,Four Wheeled Walker Gait Goal Standby Assistance,Front Wheel Walker,Four Wheel Walker Gait Distance 200 Other Goals up/down 13 steps B rails SBA Days to Meet Goals 10 Frequency of Treatment Frequency Of Treatment Twice a Day Treatment Plan Physical Therapy Treatment Plan Bed Mobility Training,Transfer Training,Gait Training, Therapeutic Exercise,Balance Retraining,Post Op Education, Discharge Planning,Hot or Cold Pack,Neuromuscular Re-ed, Coordination Retraining,Manual Therapy Precautions Lumbar Precautions Log Roll,No Twisting,Limit Bending,Lifting Restriction of 10 lbs,Gait Belt above Incisional Area Recommendations To Nursing Amount of Assist Needed 1 Person Assist Discharge Recommendations PT Discharge Recommendations Home with 19/06 Assist Available,Home Health Transportation Needs at Discharge Private Vehicle,Wheelchair/ Cabulance
--- NOTE | 2022-10-07 09:05 | PM.PNPO.1 ---
Subjective Subjective Date Patient Seen: 10/07/22 Time Patient Seen: 09:05 Interval history: Pt c/o back pain, not much sleep last night. Has a headache that is mostly at the occiput, but occasionally in the temporal region. She notes that this headache comes and goes, and she doesn't necessarily relate it to position change but admits she hasn't paid much attention. She is mostly concerned about her low back pain. She denies leg pain. She says her is very busy with work and does not seem to be prepared for the amount of help she would need after surgery. She would like to avoid going to a SNF, but she tells me today that she has 13 stairs into her home and that she has not worked with PT on stairs yet. Exam Vital Signs (past 8 hours): - 10/07/22 01:26 10/07/22 05:12 10/07/22 08:31 Temperature 99.3 F 98.2 F 97.7 F Pulse Rate 113 H 81 99 H Respiratory Rate 17 16 18 Blood Pressure 151/61 H 128/72 113/49 L Pulse Oximetry 96 97 94 Oxygen Flow Rate 0 0 0 Oxygen Delivery Method Room Air Oxygen Flow Rate 0 Narrative Exam Narrative: 5/5 strength in hip flexors, quadriceps, hamstrings, DF, PF, EHL bilaterally. Sensation to light touch intact throughout BLE. Calves soft, compressible, nontender and without palpable cords or masses. Low back dressing with some old bloody drainage on left, but dry. There is no active drainage from either incision. [facility] Medical History (Updated 10/07/22 @ 09:15 by Chey Jacobs PA-C) Anxiety Arthritis Celiac disease Depression Glaucoma Hearing impaired PTSD (post-traumatic stress disorder) Spinal stenosis Thyroid disease Surgical History (Updated 10/07/22 @ 09:12 by Chey Jacobs PA-C) History of ankle surgery History of cataract surgery History of hysterectomy History of tonsillectomy and adenoidectomy Hx of breast biopsy Hx of cholecystectomy Hx of colonoscopy (2019) Hx of LASIK Hx of oral surgery Hx of tonsillectomy S/P epidural steroid injection Social History household members: spouse Smoking Status: Never smoker alcohol intake: former Assessment & Plan Post-op Assessment and plan (1) S/P lumbar fusion: Assessment and Plan narrative: Based on lack of mobility, headache that may or may not be positional, and questionable disposition, it is unlikely patient will discharge today. Recommend working with PT and clarifying needs for discharge w/ spouse and case management with the goal of discharge tomorrow if she is stable. (2) Dural tear: Assessment and Plan narrative: Dural tear repaired intraoperatively. Based on current symptoms and physical exam, I do not think her headaches are related to continued CSF leak. We did discuss that she should take note of whether the headaches worsen with sitting up or standing, and if they do, she should alert her nurse to call me. (3) Thyroid disease: Assessment and Plan narrative: Pt states she is on 45mg of [place] Thyroid daily, not 75mg as previously ordered. I have changed this order to 45mg per pt request. Postoperative Procedures: Procedures Operation Date: 10/05/22 13:45 Actual Procedure Side Surgeon p L4-5 TLIF Ashu Lowe MD Postoperative day: 2 Quality VTE Deep Vein Thrombosis/Pulmonary Embolism Present on Admission: No
[2022-10-07] MEDS: THYROID, PORK 30 MG TABLET 45 MG PO (10:07)
--- NOTE | 2022-10-07 10:49 | OT.IPNOTE ---
Attempted to see pt x2 this AM. Pt initially just finishing up with P.T. then upon second attempt ~1 hour later pt is still eating breakfast and states she feels very tired and would like to rest today. Will hold and continue to follow up.
--- NOTE | 2022-10-07 12:43 | CM.DPC ---
DCP continued: CM met with patient and her Jesús at the bedside to discuss DC planning. patient does not want any SNF placement at DC. However Patient is open to HH services for PT and OT help at home. Patient had caregiver training today with jesús and patient is currently a 1 person assist which she will have at DC home. patients and patient had no preference to what HH company to use. CM utilized IPAD to show patient and family different HH options and rating and they chose to go with [facility]. CM filled out F2F and called [facility] who stated they have availability and most likely will be able to open HH services for PT and OT on Monday. Patient was happy with that. CM faxed F2F to [facility] along with H&P and current PT/ OT notes. CM gave family [facility] brochure and contact information so they will have that as a resource at DC. CM team will continue to follow to help with any DC planning needs as they arise Hazel Ojeda RNstore worker
--- NOTE | 2022-10-07 15:03 | PM.DS.1 ---
History of Present Illness History of Present Illness Date Patient Seen: 10/07/22 Time Patient Seen: 09:00 Chief complaint: TLIF Narrative: Operative Date/Time/Diagnoses Date of procedure: 10/05/22 Time of procedure: 14:00 Pre-op diagnosis: 1. L4-5 spinal stenosis 2. L4-5 spondylosis with radiculopathy Post-op diagnosis: same Procedure & Clinicians Procedure: 1. L4-5 Postero-lateral and posterior interbody fusion 2. L4-5 interbody cage placement. 3. L4-5 decompressive laminectomy with bilateral facetecomies 4. L4-5 Posterior non-segmental instrumentation 5. Notrees of bone marrow from iliac crest 6. Utilization of microsurgical technique and operating microscope Same procedure as scheduled: Yes Indications: Patient has been having chronic back pain and worsening lumbar radiculopathy. Patient failed multiple conservative management with worsening pain weakness and numbness in her lower extremity.? Patient has been having difficulty performing activity of daily living.? After discussing risks benefits of treatment options, patient elected proceed with surgery. Surgeon: Ashu Lowe Incubator Machine Operator: Merrill Niño Click Yes if Unassisted: No Anesthesia Type: General Operative Notes Closure Type: primary Specimen(s): none sent Prosthetic devices, grafts, tissues, transplants, or devices: Globus revolve screws, RIse cage Estimated Blood Loss (mL): 50 Blood products transfused: none Discharge Providers Provider Date of admission: 10/05/22 11:59 Discharge Date: 10/07/22 Primary care physician: Holly Daniels MD Consults: 10/05/22 18:16 Consult to Occupational Therapy Evaluate & Treat Comment: Physician Instructions: Evaluate and treat Consult to Physical Therapy Evaluate & Treat Comment: Physician Instructions: Evaluate and Treat Discharge provider: Chey Jacobs PA-C Summary Hospital Course Discharge Diagnosis: s/p lumbar fusion w/ dural tear and repair. Hospital Course: Please see today's progress notes. I received at call at 1300 from pts RN stating pt had been cleared for homegoing by PT and that pt was feeling well and expected to go home today. No s/s consistent w/ CSF leak. Exam Vital Signs (past 8 hours): - 10/07/22 08:31 Temperature 97.7 F Pulse Rate 99 H Respiratory Rate 18 Blood Pressure 113/49 L Pulse Oximetry 94 Oxygen Flow Rate 0 Oxygen Delivery Method Room Air Oxygen Flow Rate 0 PFSH Medical History (Updated 10/07/22 @ 09:15 by Chey Jacobs PA-C) Anxiety Arthritis Celiac disease Depression Glaucoma Hearing impaired PTSD (post-traumatic stress disorder) Spinal stenosis Thyroid disease Surgical History (Updated 10/07/22 @ 09:12 by Chey Jacobs PA-C) History of ankle surgery History of cataract surgery History of hysterectomy History of tonsillectomy and adenoidectomy Hx of breast biopsy Hx of cholecystectomy Hx of colonoscopy (2019) Hx of LASIK Hx of oral surgery Hx of tonsillectomy S/P epidural steroid injection Social History household members: spouse Smoking Status: Never smoker alcohol intake: former Discharge Assessment & Plan Assessment and Plan Assessment: L4-5 spinal stenosis, s/p lumbar fusion w/ dural tear and repair. Plan of Treatment: Discharge home. F/u in office in 2 weeks. Multimodal pain control. Discharge Plan Discharge Plan Patient Disposition: Home Discharge orders & Medications Prescriptions: New oxycodone 5 mg tablet 5 mg PO Q4H PRN (Reason: pain (scale score 7-10)) Qty: 60 0RF docusate sodium 100 mg Capsule 100 mg PO BID PRN (Reason: constipation) Qty: 60 2RF acetaminophen 325 mg Tablet 650 mg PO Q6HR PRN (Reason: Pain, Mild (1-3)) Qty: 240 0RF Continued amitriptyline 50 mg Tablet 50 mg PO BEDTIME brimonidine-timolol [Combigan] 0.2-0.5 % Drops 1 drp EYE-BOTH BID venlafaxine 150 mg Tablet Extended Release 24hr 150 mg PO QAM thyroid (pork) [[place] Thyroid] 15 mg Tablet 45 mg PO DAILY thyroid (pork) [[place] Thyroid] 30 mg Tablet 30 mg PO DAILY [place] 0.01 % Drops 1 drp EYE-BOTH QPM estradiol 0.01 % (0.1 mg/gram) Cream 1 g VAGINAL 3XW Follow up/Referrals: Holly Daniels MD [Primary Care Provider] - Ashu Lowe MD [Physician] - As previously scheduled (Follow up w/ Dr Lowe on 10/14/2022 @ 1:30 pm at [facility] office in [place].) Diet/Activity/Treatments Diet: Diet as Tolerated Activity: No deep bending or twisting at the waist. Cold/Heat Therapy: Heating pad to back as needed for pain. Skin/Wound/Dressing Care Report to your healthcare provider any signs of infection, such as:: chills, fever, night sweats, unusual drainage and unusual redness Dressing: May shower. Keep dressing as dry as possible. If dressing becomes wet inside, may remove and replace with clean, dry gauze. No bathing or otherwise soaking incisions. Do not apply any creams, lotions, or ointments to incisions. Visit Report/Discharge Packet Instructions: DI for Prescription Opioid Use, DI for Transforaminal Lumbar Interbody Fusion Stand Alone Forms: Surgery Discharge Discharge Data Primary Care Provider: Holly Daniels VTE Deep Vein Thrombosis/Pulmonary Embolism Present on Admission: No
[2022-10-07] MEDS: hydrOXYzine pamoate 25 MG CAPSULE PO (15:17)
[2022-10-07] MEDS: VENLAFAXINE 150 MG 1 EACH PO (15:17)
--- NOTE | 2022-10-07 17:20 | PC.NURSE ---
Care assumed of patient this a.m. at approximately 1030 a.m. She is A&Ox3, eating a late breakfast. She reports pain well controlled with PRN oxycodone. Per PT patient did well during caregiver training with her and is cleared for discharge home with the today. PA notified in surgery and informed that she would write patient's discharge orders this afternoon. She takes a long nap through lunch and upon awakening reports mild headache and severe back pain. She is medicated with prn tylenol and oxycodone. VSS, temp 99.4, she is encouraged to use IS frequently. Upon reassessment her temp is 98.5. She is dressed and ambulates with a steady gait around the room slowly. She acknowledges understanding of her discharge medications, site care, signs of complication, activity as well as follow up appointment. She is escorted at 1630 via w/ch to private vehicle with her for discharge home with all of her belongings including her hearing aids and home meds
== END 2022-10-07 16:30 | disposition home health service (06) | DRG 454 ==
PROVIDERS: Admitting Provider Orthopaedic Surgery Orthopaedic Surgery of the Spine; PCP Family Medicine; Referring Provider Orthopaedic Surgery Orthopaedic Surgery of the Spine; Visit Provider Orthopaedic Surgery Orthopaedic Surgery of the Spine
PROC: 0SG00AJ Fusion of Lumbar Vertebral Joint with Interbody Fusion Device, Posterior Approach, Anterior Column, Open Approach (ICD-10-PCS; principal; 2022-10-05 13:45)
DX: M48.061 Spinal stenosis, lumbar region without neurogenic claudication (principal); G97.41 Accidental puncture or laceration of dura during a procedure; M47.26 Other spondylosis with radiculopathy, lumbar region; E07.9 Disorder of thyroid, unspecified; R51.9 Headache, unspecified; F32.A Depression, unspecified; H40.9 Unspecified glaucoma; F41.9 Anxiety disorder, unspecified; Z20.822 Contact with and (suspected) exposure to COVID-19
CPT/HCPCS: 36415; 72100; 76000; 87635; 97162; 97165; 97530; 97535; C9803; C1713; C9290; J0171; J0330; J0690; J1100; J1170; J2250; J2405; J2704; J3010; J3410